=== PATIENT | female | born 1985 | race Caucasian/White ===

== ENCOUNTER 2022-11-17 07:37 | Outpatient (CLI) | payer OTHER | END 2022-11-17 07:38 | disposition home or self-care (01) | LOC: ULT 07:37 | PROVIDERS: ATTEND Physician Assistant | DX: R10.30 Lower abdominal pain, unspecified (principal) | CPT/HCPCS: 76856 ==

== ENCOUNTER 2022-11-21 12:43 | Emergency (ER) | payer OTHER ==
[~2022-11-21 12:43] MED LIST: Iopamidol-370 76% 500 ML MDV (1 ML CHARGE) ONE
[2022-11-21 13:39] LABS: #Monocytes 0.3 thou/uL (0.11-0.59); #Neutrophils 4.2 thou/uL (1.40-6.50); %Basophils 0.3 % (0.0-1.0); %Eosinophils 0.5 % (0.0-10.0); %Lymphocytes 28.3 % (21.0-51.0); %Monocytes 4.7 % (0.0-10.0); %Neutrophils 65.9 % (42.0-75.0); Hemoglobin 13.3 g/dL (12.0-16.0); Mean Corpuscular HGB CONC 33.6 g/dL (32.0-36.0); Mean Corpuscular Hemoglobin 30.7 pg (27.0-31.0); Mean Corpuscular Volume 91.5 fl (78.0-98.0); Platelet Count 221 10x3/uL (130-400); Red Blood Cell (RBC) Count 4.33 mill/uL (4.20-5.40); White Blood Cell (WBC) Count 6.4 10x3/uL (4.8-10.8)
[2022-11-21 13:51] LABS: BHCG - Serum Negative (NEGATIVE); Pregs Control Background? CLEAR/WHITE (CLR/WHITE); Pregs Control Bar Appear? YES (CONTROL BAR)
[2022-11-21 14:07] LABS: ALT (SGPT) 14 U/L (8-55); AST (SGOT) 14 U/L (5-34); Albumin 4.6 g/dL (3.5-5.0); Alkaline Phosphatase 67 U/L (40-110); Anion Gap 12 mmol/L (10-20); BUN (Urea Nitrogen) 12 mg/dL (7.0-18.7); Bilirubin, Total 0.3 mg/dL (0.2-1.2); Calc. Creatinine Clearance 0 mL/min (70-130); Calcium 9.5 mg/dL (7.8-10.44); Carbon Dioxide 28 mmol/L (22-29); Chloride 103 mmol/L (98-107); Estimated GFR 116; Globulin 2.6 g/dL (2.4-3.5); Glucose 82 mg/dL (70-105); Lipase 25 U/L (8-78); Protein, Total 7.2 g/dL (6.0-8.3); Sodium 139 mmol/L (136-145)
[2022-11-21 15:34] LABS: Bacteria/HPF 2+ HPF (None Seen); Bilirubin Negative (Negative); Blood, Urine Negative (Negative); CAUTI Indications for Culture Pelvic or flank pain; Clarity Clear (Clear); Glucose, Urine (Dipstick) Normal (Negative); Ketone, Urine Negative (Negative); Leukocyte Negative Leu/uL (Negative); Nitrite Negative (Negative); Protein, Urine (Dipstick) Negative (Neg-Trace); RBC/HPF 0-3 HPF (0-3); Specific Gravity, Urine 1.011 (1.002-1.036); Urobilinogen Normal mg/dL (Less than 2); WBC/HPF 0-3 HPF (0-3)
[2022-11-21 15:37] LABS: Urine Culture Reflex No No
[2022-11-21] MEDS ORDERED: HYDROcodone/Acetaminophen 5/325 mg Tablet ONE (17:11)
[2022-11-21] MEDS ORDERED: Ondansetron ODT 4 MG TAB ONE (17:11)
[2022-11-21 17:21] LABS: Magnesium 1.5 mg/dL (1.6-2.6)
[2022-11-21] MEDS ORDERED: Magnesium 2 GM/50 ML BAG (IN WATER) ONE (18:39)
[2022-11-21] MEDS ORDERED: Morphine 4 MG/ML VIAL ONE (21:01)
[2022-11-21] MEDS ORDERED: Acetaminophen 500 MG TAB ONE (21:03)
== END 2022-11-21 20:57 | disposition home or self-care (01) ==
LOC: ERS 12:43
DX: N94.89 Other specified conditions associated with female genital organs and menstrual cycle (principal)
CPT/HCPCS: 36415; 71045; 74177; 80053; 81001; 83690; 83735; 84443; 84703; 85025; 93005; 94760; 96365; J2270; J3475; Q0162; Q9967